=== PATIENT | female | born 1945 | race Hispanic/Latino ===

== ENCOUNTER 2020-04-18 06:37 | Outpatient (CLI) | payer MEDICARE, OTHER ==
[2020-04-18 13:39] LABS: #Basophils 0.1 thou/uL (0.0-0.2); #Eosinphils 0.3 thou/uL (0.0-0.7); #Lymphocytes 3.2 thou/uL (1.20-3.40); #Monocytes 0.6 thou/uL (0.11-0.59); #Neutrophils 6.1 thou/uL (1.40-6.50); %Basophils 0.5 % (0.0-1.0); %Eosinophils 3.1 % (0.0-10.0); %Lymphocytes 31.2 % (21.0-51.0); %Neutrophils 59.2 % (42.0-75.0); Hemoglobin 11.9 g/dL (12.0-16.0); Mean Corpuscular HGB CONC 32.4 g/dL (32.0-36.0); Mean Corpuscular Hemoglobin 29.4 pg (27.0-31.0); Mean Corpuscular Volume 90.6 fL (78.0-98.0); Mean Platelet Volume 8.7 fL (7.4-10.4); Platelet Count 299 thou/uL (130-400); RBC Distribution Width 14.1 % (11.5-14.5); Red Blood Cell (RBC) Count 4.06 mill/uL (4.20-5.40); White Blood Cell (WBC) Count 10.4 thou/uL (4.8-10.8)
[2020-04-18 13:58] LABS: ALT (SGPT) 12 U/L (8-55); AST (SGOT) 21 U/L (5-34); Albumin 4.2 g/dL (3.4-4.8); Alkaline Phosphatase 56 U/L (40-110); Anion Gap 12 mmol/L (10-20); BUN (Urea Nitrogen) 19 mg/dL (9.8-20.1); Bilirubin, Total 0.6 mg/dL (0.2-1.2); Calc. Creatinine Clearance 0 mL/min (70-130); Calcium 9.3 mg/dL (7.8-10.44); Carbon Dioxide 26 mmol/L (23-31); Chloride 105 mmol/L (98-107); Estimated GFR-MDRD 65; Globulin 3.3 g/dL (2.4-3.5); Glucose 103 mg/dL (83-110); Potassium 3.9 mmol/L (3.5-5.1); Protein, Total 7.5 g/dL (6.0-8.3); Sodium 139 mmol/L (136-145)
[2020-04-19 12:16] LABS: SARS-CoV-2 MS2 Positive; SARS-CoV-2 N Gene Negative; SARS-CoV-2 S Gene Negative; SARS-CoV-2 orf1ab Negative
== END 2020-04-18 06:38 | disposition home or self-care (01) ==
LOC: LABBT 06:37
PROVIDERS: ATTEND Internal Medicine Cardiovascular Disease
DX: Z01.812 Encounter for preprocedural laboratory examination (principal); Z11.59 Encounter for screening for other viral diseases
CPT/HCPCS: 80053; 85025; U0003; 87635

== ENCOUNTER 2021-10-15 10:47 | Outpatient (CLI) | payer MEDICARE | END 2021-10-15 10:48 | disposition home or self-care (01) | LOC: BICMAMMO 10:47 | PROVIDERS: ATTEND Family Medicine | DX: Z12.31 Encounter for screening mammogram for malignant neoplasm of breast (principal) | CPT/HCPCS: 77063; 77067 ==

== ENCOUNTER 2022-07-09 07:12 | Emergency (ER) | payer MEDICARE ==
[2022-07-09] MEDS ORDERED: Dexamethasone 10 MG/ML VIAL ONE (07:29)
[2022-07-09] MEDS ORDERED: Morphine 4 MG/ML VIAL ONE (07:29)
[2022-07-09 08:10] LABS: #Eosinphils 0.9 thou/uL (0.0-0.7); #Lymphocytes 2.6 thou/uL (1.20-3.40); #Monocytes 0.6 thou/uL (0.11-0.59); #Neutrophils 4.6 thou/uL (1.40-6.50); %Basophils 0.5 % (0.0-1.0); %Eosinophils 10.5 % (0.0-10.0); %Lymphocytes 30.1 % (21.0-51.0); %Monocytes 6.3 % (0.0-10.0); %Neutrophils 52.6 % (42.0-75.0); Mean Corpuscular HGB CONC 32.6 g/dL (32.0-36.0); Mean Corpuscular Hemoglobin 30.1 pg (27.0-31.0); Mean Corpuscular Volume 92.1 fL (78.0-98.0); Mean Platelet Volume 8.6 fL (7.4-10.4); Platelet Count 275 thou/uL (130-400); RBC Distribution Width 16.3 % (11.5-14.5); Red Blood Cell (RBC) Count 3.67 mill/uL (4.20-5.40); White Blood Cell (WBC) Count 8.7 thou/uL (4.8-10.8)
[2022-07-09 08:16] LABS: INR-International Normal Ratio 1.5; Prothrombin Time 18.1 sec (12.0-14.7)
[2022-07-09 08:17] LABS: PTT 37.8 sec (22.9-36.1)
[2022-07-09 08:36] LABS: ALT (SGPT) 12 U/L (8-55); AST (SGOT) 31 U/L (5-34); Albumin 3.5 g/dL (3.4-4.8); Alkaline Phosphatase 51 U/L (40-110); Anion Gap 14 mmol/L (10-20); BUN (Urea Nitrogen) 18 mg/dL (9.8-20.1); Calc. Creatinine Clearance 0 mL/min (70-130); Calcium 9.1 mg/dL (7.8-10.44); Carbon Dioxide 20 mmol/L (23-31); Chloride 106 mmol/L (98-107); Estimated GFR 83; Globulin 3.7 g/dL (2.4-3.5); Glucose 89 mg/dL (83-110); Potassium 4.6 mmol/L (3.5-5.1); Protein, Total 7.2 g/dL (5.8-8.1); Sodium 135 mmol/L (136-145)
== END 2022-07-09 09:45 | disposition home or self-care (01) ==
LOC: ERS 07:12
DX: M54.50 Low back pain, unspecified (principal); I10 Essential (primary) hypertension; Z79.82 Long term (current) use of aspirin; Z79.01 Long term (current) use of anticoagulants; Z79.899 Other long term (current) drug therapy
CPT/HCPCS: 80053; 85025; 85610; 85652; 85730; 96374; 96375; J1100; J2270

== ENCOUNTER 2023-08-14 18:32 | Inpatient (IN) | payer OTHER, MEDICARE ==
[2023-08-14] MEDS ORDERED: Morphine 2 MG/ML VIAL ONE ×2 (20:20→21:49)
[2023-08-14 21:18] LABS: #Basophils 0.1 thou/uL (0.0-0.2); #Eosinphils 0.4 thou/uL (0.0-0.7); #Monocytes 0.6 thou/uL (0.11-0.59); #Neutrophils 6.9 thou/uL (1.40-6.50); %Basophils 0.6 % (0.0-1.0); %Eosinophils 3.6 % (0.0-10.0); %Lymphocytes 25.6 % (21.0-51.0); %Monocytes 5.7 % (0.0-10.0); %Neutrophils 63.6 % (42.0-75.0); Hematocrit 29.6 % (36.0-47.0); Mean Corpuscular HGB CONC 33.8 g/dL (32.0-36.0); Mean Corpuscular Hemoglobin 29.6 pg (27.0-31.0); Mean Corpuscular Volume 87.6 fl (78.0-98.0); Mean Platelet Volume 10.7 fL (7.4-10.4); Platelet Count 324 10x3/uL (130-400); RBC Distribution Width 16.6 % (11.5-14.5); Red Blood Cell (RBC) Count 3.38 mill/uL (4.20-5.40); White Blood Cell (WBC) Count 10.8 10x3/uL (4.8-10.8)
[2023-08-14 21:36] LABS: INR-International Normal Ratio 1.6; PTT 33.6 sec (22.9-36.1); Prothrombin Time 19.4 sec (12.0-14.7)
[2023-08-14 21:40] LABS: ALT (SGPT) 10 U/L (8-55); AST (SGOT) 20 U/L (5-34); Albumin 3.7 g/dL (3.4-4.8); Alkaline Phosphatase 58 U/L (40-110); Anion Gap 13 mmol/L (10-20); BUN (Urea Nitrogen) 25 mg/dL (9.8-20.1); Bilirubin, Total 0.5 mg/dL (0.2-1.2); Calc. Creatinine Clearance 0 mL/min (70-130); Calcium 9.3 mg/dL (7.8-10.44); Carbon Dioxide 24 mmol/L (23-31); Chloride 103 mmol/L (98-107); Estimated GFR 59; Globulin 3.4 g/dL (2.4-3.5); Glucose 94 mg/dL (83-110); Potassium 3.7 mmol/L (3.5-5.1); Protein, Total 7.1 g/dL (5.8-8.1); Sodium 136 mmol/L (136-145)
[2023-08-14] MEDS ORDERED: Ondansetron ODT 4 MG TAB SL PRN (23:45)
[2023-08-14] MEDS ORDERED: Acetaminophen 325 MG TAB PO PRN (23:45)
[2023-08-14] MEDS ORDERED: Ondansetron PF 4 MG/2 ML Vial IVP PRN (23:45)
[2023-08-14] MEDS ORDERED: Morphine 2 MG/ML VIAL SLOW IVP PRN (23:58)
[2023-08-15 01:14] VITALS: BMI 24.3
[2023-08-15] MEDS ORDERED: Ipratropium/Albuterol 3 ML NEB NEB PRN (07:23)
[2023-08-15] MEDS ORDERED: hydrALAZINE 20 MG/ML VIAL SLOW IVP PRN (07:23)
[2023-08-15] MEDS: Sodium Chloride 0.9% 1,000 ML IV SCH ×2 (08:53→21:54)
[2023-08-15] MEDS ORDERED: Famotidine 20 MG TAB PO SCH (09:00)
[2023-08-15] MEDS ORDERED: TETANUS, DIPHTHERIA TOX,ADULT (TDVAX) 0.5 ML VIAL IM ONE (12:00)
[2023-08-15] MEDS ORDERED: FLU VACC QS2023-24(6MOS UP)/PF 60 MCG/0.5 ML SYRINGE IM ONE (12:21)
[2023-08-15] MEDS: FLU VACC QS2023(65UP)/MF59C/PF 60 MCG/0.5 ML SYRINGE IM ONE ×2 (12:40→12:42)
[2023-08-15] MEDS: Acetaminophen 325 MG TAB PO SCH ×2 (14:41→20:29)
[2023-08-15 18:27] LABS: Bacteria/HPF None Seen HPF (None Seen); Bilirubin Negative (Negative); Blood, Urine Negative (Negative); CAUTI Indications for Culture Alt mental st,lethar; Clarity Clear (Clear); Glucose, Urine (Dipstick) Normal (Negative); Ketone, Urine Negative (Negative); Leukocyte Negative Leu/uL (Negative); Nitrite Negative (Negative); Protein, Urine (Dipstick) Negative (Neg-Trace); RBC/HPF 0-3 HPF (0-3); Specific Gravity, Urine 1.006 (1.002-1.036); Squamous Epithelial 0-3 HPF (0-3); Urobilinogen Normal mg/dL (Less than 2); WBC/HPF 0-3 HPF (0-3); pH, Urine 5.5 (5.0-9.0)
[2023-08-15 18:29] LABS: Urine Culture Reflex No No
[2023-08-15] MEDS ORDERED: Morphine 2 MG/ML VIAL SLOW IVP PRN (18:37)
[2023-08-15] MEDS: Acetaminophen/Codeine 30-300mg Tablet PO PRN (20:33)
[2023-08-16] MEDS: Acetaminophen 325 MG TAB PO SCH ×3 (02:01→20:41)
[2023-08-16 05:41] LABS: #Basophils 0.1 thou/uL (0.0-0.2); #Eosinphils 0.8 thou/uL (0.0-0.7); #Monocytes 0.6 thou/uL (0.11-0.59); #Neutrophils 3.6 thou/uL (1.40-6.50); %Basophils 0.6 % (0.0-1.0); %Eosinophils 10.2 % (0.0-10.0); %Lymphocytes 37.9 % (21.0-51.0); %Monocytes 6.9 % (0.0-10.0); Hematocrit 31.3 % (36.0-47.0); Hemoglobin 10.3 g/dL (12.0-16.0); Mean Corpuscular HGB CONC 32.9 g/dL (32.0-36.0); Mean Corpuscular Hemoglobin 29.5 pg (27.0-31.0); Mean Corpuscular Volume 89.7 fl (78.0-98.0); Mean Platelet Volume 10.5 fL (7.4-10.4); Platelet Count 281 10x3/uL (130-400); RBC Distribution Width 16.8 % (11.5-14.5); Red Blood Cell (RBC) Count 3.49 mill/uL (4.20-5.40); White Blood Cell (WBC) Count 8.2 10x3/uL (4.8-10.8)
[2023-08-16 06:10] LABS: Anion Gap 11 mmol/L (10-20); BUN (Urea Nitrogen) 15 mg/dL (9.8-20.1); Calc. Creatinine Clearance 53 mL/min (70-130); Calcium 8.8 mg/dL (7.8-10.44); Carbon Dioxide 20 mmol/L (23-31); Chloride 112 mmol/L (98-107); Estimated GFR 78; Glucose 89 mg/dL (83-110); Potassium 4.3 mmol/L (3.5-5.1); Sodium 139 mmol/L (136-145)
[2023-08-16] MEDS ORDERED: Bupivacaine PF 0.5% 30 ML VIAL ONE (09:57)
[2023-08-16] MEDS ORDERED: EPINEPHrine 1 MG/ML AMP ONE (09:57)
[2023-08-16] MEDS ORDERED: fentaNYL PF 100 MCG/2 ML SYRINGE ONE (10:09)
[2023-08-16] MEDS ORDERED: Phenylephrine 10 MG/ML VIAL ONE (10:09)
[2023-08-16] MEDS ORDERED: Sodium Chloride 0.9% 100 ML ONE (10:28)
[2023-08-16] MEDS ORDERED: CEFAZOLIN 2 GM VIAL ONE (10:28)
[2023-08-16] MEDS ORDERED: CEFAZOLIN 2 GM in Sodium Chloride 0.9% 100 ML IVPB SCH (10:30)
[2023-08-16] MEDS ORDERED: PROPOFOL 200 MG/20 ML VIAL ONE (10:40)
[2023-08-16] MEDS ORDERED: Rocuronium Bromide 10 MG/ML (10ML VIAL) ONE (10:40)
[2023-08-16] MEDS ORDERED: Ondansetron PF 4 MG/2 ML Vial IVP PRN (10:40)
[2023-08-16] MEDS ORDERED: Dexamethasone 20 MG/5 ML VIAL ONE (10:40)
[2023-08-16] MEDS ORDERED: Lidocaine 1% PF 5 ML VIAL ONE (10:40)
[2023-08-16] MEDS ORDERED: Ondansetron PF 4 MG/2 ML Vial ONE (10:40)
[2023-08-16] MEDS ORDERED: Communication Order-Pharmacy FS SCH (10:45)
[2023-08-16] MEDS ORDERED: Promethazine HCl 25 MG/ML VIAL IM PRN ×2 (11:16→11:46)
[2023-08-16] MEDS ORDERED: Ondansetron HCl/PF 4 MG/2 ML Vial IVP PRN ×2 (11:16→11:46)
[2023-08-16] MEDS ORDERED: SUGAMMADEX SODIUM 200 MG/2 ML VIAL ONE (11:18)
[2023-08-16] MEDS ORDERED: Ketorolac Tromethamine 30 MG/ML VIAL ONE (11:49)
[2023-08-16] MEDS: Acetaminophen/Codeine 30-300mg Tablet PO PRN (15:17)
[2023-08-16] MEDS: Famotidine 20 MG TAB PO SCH (17:20)
[2023-08-16] MEDS: Polyethylene Glycol 3350 17 GM Packet PO SCH (17:21)
[2023-08-16] MEDS: Ketorolac Tromethamine 30 MG/ML VIAL IVP SCH ×3 (17:21→23:18)
[2023-08-16] MEDS: Senokot 8.6 MG TAB PO SCH (17:21)
[2023-08-16] MEDS: Sodium Chloride 0.9% 1,000 ML IV SCH (17:21)
[2023-08-16] MEDS: CEFAZOLIN 2 GM in Sodium Chloride 0.9% 100 ML IVPB SCH (18:01)
[2023-08-16] MEDS: Apixaban 5 MG TAB PO SCH (20:41)
[2023-08-17] MEDS: CEFAZOLIN 2 GM in Sodium Chloride 0.9% 100 ML IVPB SCH (02:52)
[2023-08-17] MEDS: Sodium Chloride 0.9% 1,000 ML IV SCH ×2 (02:56→20:33)
[2023-08-17] MEDS: Acetaminophen 325 MG TAB PO SCH ×4 (02:57→20:15)
[2023-08-17] MEDS: Ketorolac Tromethamine 30 MG/ML VIAL IVP SCH ×2 (05:57→12:43)
[2023-08-17] MEDS: Acetaminophen/Codeine 30-300mg Tablet PO PRN (09:27)
[2023-08-17] MEDS: Polyethylene Glycol 3350 17 GM Packet PO SCH (09:47)
[2023-08-17] MEDS: Senokot 8.6 MG TAB PO SCH (09:48)
[2023-08-17] MEDS: Lisinopril/Hydrochlorothiazide 20 mg/12.5 mg Tablet PO SCH (09:48)
[2023-08-17] MEDS: Apixaban 5 MG TAB PO SCH ×2 (09:48→19:51)
[2023-08-17 10:25] LABS: Hematocrit 26.5 % (36.0-47.0); Hemoglobin 8.5 g/dL (12.0-16.0); Mean Corpuscular HGB CONC 32.1 g/dL (32.0-36.0); Mean Corpuscular Hemoglobin 29.6 pg (27.0-31.0); Mean Corpuscular Volume 92.3 fl (78.0-98.0); Red Blood Cell (RBC) Count 2.87 mill/uL (4.20-5.40); White Blood Cell (WBC) Count 10.9 10x3/uL (4.8-10.8)
[2023-08-17 10:26] LABS: #Eosinphils 0.1 thou/uL (0.0-0.7); #Monocytes 0.7 thou/uL (0.11-0.59); #Neutrophils 8.1 thou/uL (1.40-6.50); %Basophils 0.3 % (0.0-1.0); %Eosinophils 1.2 % (0.0-10.0); %Lymphocytes 17.6 % (21.0-51.0); %Monocytes 6.1 % (0.0-10.0); %Neutrophils 74.3 % (42.0-75.0); Mean Platelet Volume 10.3 fL (7.4-10.4); Platelet Count 241 10x3/uL (130-400); RBC Distribution Width 16.9 % (11.5-14.5)
[2023-08-17] MEDS: Famotidine 20 MG TAB PO SCH (12:47)
[2023-08-17] MEDS: Raloxifene 60 MG TAB PO SCH (17:15)
[2023-08-17] MEDS: Aspirin 81 mg Enteric Coated Tablet PO SCH (17:15)
[2023-08-18] MEDS: Acetaminophen 325 MG TAB PO SCH ×2 (02:07→09:02)
[2023-08-18] MEDS: Sodium Chloride 0.9% 1,000 ML IV SCH (06:10)
[2023-08-18] MEDS: Senokot 8.6 MG TAB PO SCH ×2 (09:01→09:04)
[2023-08-18] MEDS: Raloxifene 60 MG TAB PO SCH (09:01)
[2023-08-18] MEDS: Aspirin 81 mg Enteric Coated Tablet PO SCH (09:01)
[2023-08-18] MEDS: Apixaban 5 MG TAB PO SCH (09:02)
[2023-08-18] MEDS: Lisinopril/Hydrochlorothiazide 20 mg/12.5 mg Tablet PO SCH (09:02)
[2023-08-18] MEDS: Famotidine 20 MG TAB PO SCH ×2 (09:02→09:07)
[2023-08-18] MEDS: Polyethylene Glycol 3350 17 GM Packet PO SCH (09:03)
[2023-08-18 15:31] VITALS: BP 111/66; TEMP 97.8
== END 2023-08-18 16:17 | disposition home health service (06) | DRG 482 ==
LOC: ERS 18:32 → SURG A 21:45
PROVIDERS: ADMIT Specialist; ATTEND Specialist
PROC: 0QH634Z Insertion of Internal Fixation Device into Right Upper Femur, Percutaneous Approach (ICD-10-PCS; principal; 2023-08-16)
PROC: 3E033XZ Introduction of Vasopressor into Peripheral Vein, Percutaneous Approach (ICD-10-PCS; 2023-08-16)
DX: S72.011A Unspecified intracapsular fracture of right femur, initial encounter for closed fracture (principal); W01.0XXA Fall on same level from slipping, tripping and stumbling without subsequent striking against object, initial encounter; I48.91 Unspecified atrial fibrillation; I10 Essential (primary) hypertension; Z79.82 Long term (current) use of aspirin; Z98.890 Other specified postprocedural states; Z90.710 Acquired absence of both cervix and uterus; Z95.2 Presence of prosthetic heart valve; Z95.0 Presence of cardiac pacemaker; Z79.01 Long term (current) use of anticoagulants; Z79.899 Other long term (current) drug therapy
CPT/HCPCS: 36415; 71045; 72192; 80048; 80053; 81001; 85025; 85610; 85730; 90471; 90694; 93005; 96374; 96376; C1713; C1769; G0008; J0171; J1100; J1885; J2272; J2370; J2405; J2704; J3490; J7050; S0020

== ENCOUNTER 2023-08-25 12:02 | Outpatient (CLI) | payer MEDICARE | END 2023-08-25 12:03 | disposition home or self-care (01) | LOC: RAD 12:02 | PROVIDERS: ATTEND Family Medicine | DX: S90.31XA Contusion of right foot, initial encounter (principal) ==

== ENCOUNTER 2023-12-05 17:15 | Emergency (ER) | payer MEDICARE ==
[2023-12-05] MEDS ORDERED: Meclizine HCl 25 MG TAB ONE (18:08)
[2023-12-05 18:37] LABS: #Eosinphils 0.1 thou/uL (0.0-0.7); #Monocytes 0.6 thou/uL (0.11-0.59); #Neutrophils 6.2 thou/uL (1.40-6.50); %Basophils 0.4 % (0.0-1.0); %Eosinophils 1.3 % (0.0-10.0); %Lymphocytes 24.3 % (21.0-51.0); %Monocytes 6.7 % (0.0-10.0); Hematocrit 27.3 % (36.0-47.0); Hemoglobin 8.8 g/dL (12.0-16.0); Mean Corpuscular HGB CONC 32.2 g/dL (32.0-36.0); Mean Corpuscular Hemoglobin 26.2 pg (27.0-31.0); Mean Corpuscular Volume 81.3 fl (78.0-98.0); Platelet Count 358 10x3/uL (130-400); RBC Distribution Width 16.6 % (11.5-14.5); Red Blood Cell (RBC) Count 3.36 mill/uL (4.20-5.40); White Blood Cell (WBC) Count 9.2 10x3/uL (4.8-10.8)
[2023-12-05 19:00] LABS: ALT (SGPT) 8 U/L (8-55); AST (SGOT) 19 U/L (5-34); Albumin 3.6 g/dL (3.4-4.8); Alkaline Phosphatase 57 U/L (40-110); Anion Gap 12 mmol/L (10-20); BUN (Urea Nitrogen) 25 mg/dL (9.8-20.1); Bilirubin, Total 0.6 mg/dL (0.2-1.2); Calc. Creatinine Clearance 0 mL/min (70-130); Calcium 8.9 mg/dL (7.8-10.44); Carbon Dioxide 23 mmol/L (23-31); Chloride 105 mmol/L (98-107); Estimated GFR 45; Globulin 3.3 g/dL (2.4-3.5); Glucose 139 mg/dL (83-110); Magnesium 1.9 mg/dL (1.6-2.6); Potassium 4.3 mmol/L (3.5-5.1); Protein, Total 6.9 g/dL (5.8-8.1); Sodium 136 mmol/L (136-145)
[2023-12-05 19:04] LABS: Troponin I 0.013 ng/mL (< 0.028)
== END 2023-12-05 23:36 | disposition home or self-care (01) ==
LOC: ERS 17:15
DX: D64.9 Anemia, unspecified (principal); N17.9 Acute kidney failure, unspecified; I10 Essential (primary) hypertension; Z79.899 Other long term (current) drug therapy
CPT/HCPCS: 70450; 71045; 80053; 83735; 84484; 85025; 93005; 96360; 96361

== ENCOUNTER 2025-01-10 09:31 | Outpatient (CLI) | payer MEDICARE | END 2025-01-10 09:32 | disposition home or self-care (01) | LOC: BICMAMMO 09:31 | PROVIDERS: ATTEND Family Medicine | DX: Z78.0 Asymptomatic menopausal state (principal); M85.89 Other specified disorders of bone density and structure, multiple sites | CPT/HCPCS: 77080 ==